=== PATIENT | male | born 1985 | race Caucasian/White ===

== ENCOUNTER 2016-03-18 00:16 | Inpatient (IN) ==
[2016-03-18] MEDS ORDERED: 0.9 % Sodium Chloride 1,000 ML IVC ONE ×2 (02:31→03:55)
[2016-03-18 03:32] LABS: Basophils # 0.1 K/mcL (0.0-0.2); Basophils % 0.3 %; Eosinophils # 0.1 K/mcL (0.0-0.6); Eosinophils % 0.3 %; Hematocrit 35.8 % (37.5-50.1); Hemoglobin 12.6 g/dL (12.9-16.9); Immature Granulocytes % 1.1 % (0-4); Lymphocytes # 1.7 K/mcL (0.6-4.6); Lymphocytes % 7.7 %; Mean Corpuscular HGB Conc 35.2 g/dL (31.6-35.5); Mean Corpuscular Hemoglobin 28.7 pg (28.0-33.3); Mean Corpuscular Volume 81.5 fL (83.0-100.0); Mean Platelet Volume 9.4 fL (9.4-12.4); Monocytes # 1.9 K/mcL (0.0-1.3); Monocytes % 8.4 %; Neutrophils # 18.1 K/mcL (1.6-8.9); Platelet Count 408 K/mcL (140-400); Red Blood Count 4.39 M/mcL (4.19-5.50); Red Cell Distribution Width 12.8 % (11.5-14.5); Segmented Neutrophils % 82.2 %
[2016-03-18 03:42] LABS: BUN/Creatinine Ratio 18 (6-26); Blood Urea Nitrogen 16 mg/dL (8-26); Calcium 8.8 mg/dL (8.6-10.8); Carbon Dioxide 21 mEq/L (19-29); Chloride 97 mEq/L (98-109); Glucose 89 mg/dL (70-99); Osmolality,Calculated 275 (280-300); Potassium 3.1 mEq/L (3.5-4.5); Sodium 132 mEq/L (136-145); eGFR For African Americans > 60 (> 60); eGFR For Non-African Americans > 60 (> 60)
[2016-03-18] MEDS ORDERED: Ketorolac 30 MG/ML VIAL IVP ONE (04:00)
--- NOTE | 2016-03-18 04:02 | Emergency Department Note ---
Disposition Clinical Impression: Hypoxia Pneumonia Qualifiers: Pneumonia type: due to unspecified organism Laterality: bilateral Lung location : lower lobe of lung Qualified Code(s): J18.9 - Pneumonia, unspecified organism Disposition: Admitted As Inpatient Condition: Fair General Adult HPI - General Chief complaint: ED Shortness of Breath/Dyspnea Stated complaint: NAOMI Time Seen by Provider: 03/18/16 02:30 Source: patient Limitations: no limitations Nursing Notes Reviewed: Yes Vital Signs Reviewed: Yes - History of Present Illness HPI Narrative: 30-year-old male who reports that he has had approximately one week of progressively worsening cough and changing color of sputum. He reports it is now green. He reports he is not having pain in his chest when he coughs. He denies any medical problems. He denies taking any medications. He does admit to shortness of breath. Radiation: non-radiation Pain Severity: moderate Pain Scale: 6 Consistency: constant Improves with: nothing Worsens with: nothing Associated symptoms: Reports: fever/chills Treatments Prior to Arrival: none - Related Data Allergies Allergy/AdvReac Type Severity Reaction Status Date / Time No Known Allergies Allergy Verified 03/18/16 00:18 All systems ED: reviewed and negative except as stated. Constitutional: Reports: fever ENT ED: Denies: throat pain Cardiovascular: Reports: chest pain Respiratory: Reports: cough, dyspnea Gastrointestinal: Denies: abdominal pain, nausea, vomiting Genitourinary: Denies: dysuria Musculoskeletal: Denies: back pain Integumentary: Denies: rash Neurological: Denies: headache Past Medical History - Past Medical History Source: patient Medical history: Reports: no medical history Psychiatric history: Reports: no psych history - Social History Smoking Status: Current every day smoker Smokeless Tobacco Status: No Alcohol use: Reports: none Drug use: Reports: none Physical Exam - General Limitations: no limitations General appearance: alert, anxious - Head Head exam: atraumatic - Eye Eye exam: Present: normal appearance, PERRL, EOMI - ENT ENT exam: normal exam, normal oropharynx - Chest Chest inspection: Present: normal inspection - Respiratory Respiratory exam: Present: other (Course lung sounds bilaterally. No wheezes) - Cardiovascular Cardiovascular exam: Present: normal rhythm, tachycardia - Abdominal Exam Abdominal exam: Present: soft, Non-Tender - Extremities Exam Extremities exam: Present: normal inspection - Neurological Exam Neurological exam: Present: alert, oriented X3, CN II-XII intact - Skin Skin exam: Present: warm, dry Course Course Narrative: 30-year-old male with cough and sputum change and fever over the last week. Chest x-ray demonstrates bilateral pneumonia. He has leukocytosis on his CBC. EKG shows sinus tachycardia. He is mildly hypoxic with an SPO2 of 90% on room air. He will receive IV fluids due to a sinus tachycardia. We will also start antibiotics. His lactate is normal. He will be admitted to the hospital due to bilateral pneumonia with hypoxia and the fact that he lives alone. - Reevaluation(s) Reevaluation #1: He is febrile to temperature of 103.1. We will give him Tylenol. Levofloxacin has been ordered. He is also on his second liter of normal saline. His blood pressure is stable at 148/83. Heart rate has come down to 115 with IV fluids. We will admit to the hospitalist Reevaluation #2: Accepted by Dr Booker for admission. Will do CTA on way up to floor and the hospitalist agreed to follow up on the result there. Vital Signs Temperature 98.1 F 03/18/16 00:18 Pulse Rate 108 03/18/16 00:18 Respiratory Rate 20 03/18/16 00:18 Blood Pressure 110/73 03/18/16 00:18 O2 Sat by Pulse Oximetry 92 L 03/18/16 00:18 Temperature 103.1 F H 03/18/16 04:51 Pulse Rate 123 03/18/16 04:51 Respiratory Rate 24 03/18/16 04:51 Blood Pressure 148/83 03/18/16 04:51 O2 Sat by Pulse Oximetry 91 L 03/18/16 04:51 Oxygen Delivery Oxygen Delivery Nasal Cannula Medical Decision Making - Lab Data Lab results reviewed: Yes I reviewed the patient's lab results. Result diagrams: 03/18/16 03:15 03/18/16 03:15 Lab Results 03/18/16 03/18/16 03/18/16 Range/Units 03:15 03:15 03:15 WBC 22.0 H (4.3-11.1) K/mcL RBC 4.39 (4.19-5.50) M/mcL Hgb 12.6 L (12.9-16.9) g/dL Hct 35.8 L (37.5-50.1) % MCV 81.5 L (83.0-100.0) fL MCH 28.7 (28.0-33.3) pg MCHC 35.2 (31.6-35.5) g/dL RDW 12.8 (11.5-14.5) % Plt Count 408 H (140-400) K/mcL MPV 9.4 (9.4-12.4) fL Immature Gran % 1.1 (0-4) % Seg Neutrophils % 82.2 % Lymphocytes % 7.7 % Monocytes % 8.4 % Eosinophils % 0.3 % Basophils % 0.3 % Neutrophils # 18.1 H (1.6-8.9) K/mcL Lymphocytes # 1.7 (0.6-4.6) K/mcL Monocytes # 1.9 H (0.0-1.3) K/mcL Eosinophils # 0.1 (0.0-0.6) K/mcL Basophils # 0.1 (0.0-0.2) K/mcL Sodium 132 L (136-145) mEq/L Potassium 3.1 L (3.5-4.5) mEq/L Chloride 97 L (98-109) mEq/L Carbon Dioxide 21 (19-29) mEq/L BUN 16 (8-26) mg/dL Creatinine 0.89 (0.72-1.25) mg/dL Est GFR ( Amer) > 60 (> 60) Est GFR (Non-Af Amer) > 60 (> 60) BUN/Creatinine Ratio 18 (6-26) Glucose 89 (70-99) mg/dL Calculated Osmolality 275 L (280-300) Lactic Acid 1.3 (0.5-2.2) mmol/L Calcium 8.8 (8.6-10.8) mg/dL Troponin I (0-0.03) ng/mL 03/18/16 Range/Units 03:15 WBC (4.3-11.1) K/mcL RBC (4.19-5.50) M/mcL Hgb (12.9-16.9) g/dL Hct (37.5-50.1) % MCV (83.0-100.0) fL MCH (28.0-33.3) pg MCHC (31.6-35.5) g/dL RDW (11.5-14.5) % Plt Count (140-400) K/mcL MPV (9.4-12.4) fL Immature Gran % (0-4) % Seg Neutrophils % % Lymphocytes % % Monocytes % % Eosinophils % % Basophils % % Neutrophils # (1.6-8.9) K/mcL Lymphocytes # (0.6-4.6) K/mcL Monocytes # (0.0-1.3) K/mcL Eosinophils # (0.0-0.6) K/mcL Basophils # (0.0-0.2) K/mcL Sodium (136-145) mEq/L Potassium (3.5-4.5) mEq/L Chloride (98-109) mEq/L Carbon Dioxide (19-29) mEq/L BUN (8-26) mg/dL Creatinine (0.72-1.25) mg/dL Est GFR ( Amer) (> 60) Est GFR (Non-Af Amer) (> 60) BUN/Creatinine Ratio (6-26) Glucose (70-99) mg/dL Calculated Osmolality (280-300) Lactic Acid (0.5-2.2) mmol/L Calcium (8.6-10.8) mg/dL Troponin I 0.01 (0-0.03) ng/mL - Radiology Data Radiology results reviewed: Yes I reviewed the patient's radiology results. - EKG Data EKG #1 EKG attestation: Yes I reviewed and interpreted this EKG. EKG shows normal: sinus rhythm Rate: tachycardia Rhythm: NSR [place]/QRS: normal Interpretation: other (sinus tachycardia) Attestation Statement - Attestation Attestation: I, Pk Gasca MD, personally performed a history and physical exam of the patient and discussed their management with the resident. I reviewed the resident's note and agree with the documented findings, medical decision making , and plan of care. 30-year-old male presents to the emergency department with a complaint of increasing cough with sputum production which started about one week prior to arrival. He also complains of increasing shortness of breath. No significant chest pain. He has had some chills and subjective fever. No history of any longer breathing problems or heart problems. Examination Patient Is a Well-Developed Thin Male in No Acute Distress. He Does Appear to Be in Moderate Discomfort. Patient Is Alert and Oriented 3. There Is No Cyanosis or Diaphoresis. Breath Sounds Are Equal Bilaterally with Some Bilateral Posterior Rales. No Wheezes Noted. Heart Tachycardic and Regular. Abdomen Is Soft and Nontender with Normal Bowel Sounds. Labs reviewed. Patient has a leukocytosis and chest x-ray shows bilateral pneumonia. The hospitalist, Dr. Booker, was consulted and accepted admission of the patient.
[2016-03-18] MEDS ORDERED: Levofloxacin 750 MG/150 ML 750 MG/150 ML BAG IVPB ONE (05:00)
[2016-03-18] MEDS ORDERED: Mag Hydrox/Al Hydrox/Simeth 30 ML UDC PO PRN (05:23)
[2016-03-18] MEDS ORDERED: *HR* OxyCODONE Immed Rel 5 MG TABLET PO PRN ×3 (05:23→13:23)
[2016-03-18] MEDS ORDERED: Naloxone 0.4 MG/ML INJ IVP PRN (05:23)
[2016-03-18] MEDS ORDERED: Acetaminophen 325 MG TABLET PO PRN (05:23)
[2016-03-18] MEDS ORDERED: *HR* Morphine 2 MG/ML SYRINGE IVP PRN (05:23)
[2016-03-18] MEDS ORDERED: Albuterol 2.5 MG/3 ML NEBULIZER IH PRN (05:34)
[2016-03-18] MEDS ORDERED: methylPREDNISolone 125 MG/2 ML VIAL IVP ONE (05:41)
[2016-03-18] MEDS ORDERED: Vancomycin (wt based) 1,000 MG VIAL IVPB SCH (06:00)
[2016-03-18 06:11] LABS: Alanine Aminotransferase 28 Units/L (0-55); Albumin 2.9 g/dL (3.5-5.0); Albumin/Globulin Ratio 0.7 (1.1-2.2); Alkaline Phosphatase 130 Units/L (38-126); Aspartate Amino Transferase 48 Units/L (5-34); Bilirubin,Direct 0.4 mg/dL (0.0-0.5); Bilirubin,Indirect 0.2 mg/dL (0.0-1.2); Bilirubin,Total 0.6 mg/dL (0.2-1.2); C-Reactive Protein 236 mg/L (Less than 5); Globulin 4.4 g/dL (2.4-3.5); Magnesium 1.8 mg/dL (1.6-2.6); Phosphorous 2.8 mg/dL (2.3-4.7); Total Protein 7.3 g/dL (6.0-8.3)
[2016-03-18 06:22] LABS: INR 1.8; Prothrombin Time 19.5 Seconds (9.4-12.1)
[2016-03-18 06:24] LABS: Activated Partial Thrombo Time 35.6 Seconds (26.0-36.0)
--- NOTE | 2016-03-18 06:25 | Internal Med History&Physical ---
<Shanita Harman - Last Filed: 03/18/16 06:38> Date of Encounter: 03/18/16 Time of Encounter: 05:30 Assessment and Plan (1) Pneumonia Current visit: Yes Status: Acute CXR with diffuse bilateral patchy infiltrates Temp of 103.1 F with WBC 22.0 Lactate 1.3 CTA chest pending Levoquin and Vancmycin Blood cultures x 2 pending Sputum culture with Gram stain pending MRSA swab culture pending Respiratory viral swab pending Respiratory infection panel pending Qualifiers: Pneumonia type: due to unspecified organism Laterality: bilateral Lung location: unspecified part of lung Qualified Code(s): J18.9 - Pneumonia, unspecified organism (2) Hypoxia Current visit: Yes Status: Acute Sats 94% at 4 L O2 NC Duoneb qid Albuterol prn Solumedrol x 1 dose, may consider adding oral steroids as needed Internal Medicine - H&P: HPI Chief complaint: cough and dyspnea Admitted From: Home Plans for Post Hospital Care: Home History of present illness: Mr. Fox is a 30 year old male who presents with 1 week history of cough with 3-4 day history of dyspnea. Patient has tried nothing for the cough and nothing for dyspnea. He states that he has had associated fever (103.1 measured upon arrival), chills, sweats, headache, dizziness, and chest pain. Patient does admit to taking Ibuprofen and Baclofen to help with back pain. He denies abdominal pian, nausea, and vomiting. Past Med Surg Social Fam HX - Past Medical History Medical history: no medical history Psychiatric history: no psych history - Past Surgical History Surgical History: no surgical history - Social History Smoking Status: Current every day smoker Smokeless Tobacco Status: No Alcohol use: none Drug use: none - Family History Father History Unknown: Yes Internal Medicine - H&P: Meds Albuterol Sulfate [Albuterol Inhaler] 2 puff IH Q4HR PRN 03/18/16 [History] Ibuprofen [Motrin] 200 mg PO Q6HR PRN 03/18/16 [History] Allergies No Known Allergies Allergy (Verified 03/18/16 00:18) All Systems PM: A 10-system review of systems was performed and is negative for pertinent findings except as documented above in the HPI. - Constitutional Constitutional: chills, fever(s) - Cardiovascular Cardiovascular ROS IM: chest pain - Respiratory Respiratory: cough, dyspnea - Constitutional Vitals: Temp Pulse Resp BP Pulse Ox 103.1 F H 123 24 152/76 91 L 03/18/16 04:51 03/18/16 04:51 03/18/16 05:35 03/18/16 05:35 03/18/16 04:51 General appearance: Present: disheveled, A&O X 3 (However falls alseep during examination), underweight - Head Head exam: Present: atraumatic, normal inspection, normocephalic - Respiratory Respiratory exam: Present: rhonchi, wheezes - Cardiovascular Cardiovascular exam: Present: +S1, +S2, tachycardia (regular rhythm with precordial heave) Internal Med - H&P Results - Labs CBC & Chem 7: 03/18/16 03:15 03/18/16 03:15 - Attending Attestation I examined this patient and my medical decision-making was reviewed with the CARTON INSPECTOR/PA/Advanced Practice Nurse/Resident Physician. I agree with the documented findings, disposition and treatment plan as described except to the extent set forth below. - VTE Documentation of Mechanical Device: Intermittent pneumatic compression device <BookerWilliam Liu - Last Filed: 03/20/16 20:04> Date of Encounter: 03/18/16 Assessment and Plan (1) Sepsis Current visit: Yes Status: Acute . Qualifiers: Sepsis type: sepsis due to unspecified organism Qualified Code(s): A41.9 - Sepsis, unspecified organism (2) IVDU (intravenous drug user) Current visit: Yes Status: Chronic . (3) Acute respiratory failure with hypoxia Current visit: Yes Status: Acute . (4) Acute chest wall pain Current visit: Yes Status: Acute . (5) Chest pain, rule out acute myocardial infarction Current visit: Yes Status: Acute . (6) Chest pain with low risk of acute coronary syndrome Current visit: Yes Status: Acute . (7) Multifocal pneumonia Current visit: Yes Status: Acute . (8) Toxic metabolic encephalopathy Current visit: Yes Status: Acute . (9) Hypoalbuminemia due to protein-calorie malnutrition Current visit: Yes Status: Acute . (10) Anemia Current visit: Yes Status: Acute . Qualifiers: Anemia type: unspecified type Qualified Code(s): D64.9 - Anemia, unspecified (11) Coagulopathy Current visit: Yes Status: Acute . (12) Hyponatremia with decreased serum osmolality Current visit: Yes Status: Acute . (13) Hypokalemia due to loss of potassium Current visit: Yes Status: Acute . (14) Transaminitis Current visit: Yes Status: Acute . (15) Acute bronchiolitis Current visit: Yes Status: Acute . Qualifiers: Bronchiolitis organism: unspecified organism Qualified Code(s): J21.9 - Acute bronchiolitis, unspecified Internal Medicine - H&P: HPI History of present illness: Mr. Fox is a 30 year old male Patient was visited and interviewed and examined. I examined this patient and my medical decision-making was reviewed with the Resident Physician. I agree with the documented findings, disposition and treatment plan as described except to the extent set forth below. Cumulative laboratory and radiographic database was reviewed considered and discussed. Pertinent ancillary medical records including ECW and PCI documentation, when available, was reviewed and considered. Given the patient's presenting concerns, past medical history, clinical findings and symptoms, he is admitted at this time to undergo further evaluation and disposition. Orders were written as per the computerized physician ordered persistent........................ Past Med Surg Social Fam HX - Past Medical History Source: old records reviewed Medical history: other (History of intravenous and on intravenous drug abuse) Psychiatric history: other - Past Surgical History Surgical History: non-contributory - Social History Packs per day: 1+ Drug use: cocaine, opiates, marijuana, IVDU, prescription drug abuse, other Occupational status: unemployed Current living situation: With Family Activity Level: Independent ambulation, Mostly sedentary Recent Out of Country Travel Within the Last 8 Weeks: No Exposure or Possible Exposure to Illness During Travel: No All Systems PM: A 10-system review of systems was performed and is negative for pertinent findings except as documented above in the HPI. - Constitutional Constitutional: as per HPI, chills, fatigue, fever(s), malaise, weakness, other , no night sweats - EENT Eyes: as per HPI, no change in vision, no discharge, no pain, no photophobia Ears: as per HPI, no ear discharge, no ear pain, no tinnitus Nose, mouth and throat: as per HPI, nasal congestion, sinus pressure, no dysphagia, no nasal discharge, no neck pain, no sore throat - Cardiovascular Cardiovascular ROS IM: as per HPI, chest pain, dyspnea, dyspnea on exertion, lightheadedness, palpitations, no claudication, no diaphoresis, no syncope - Respiratory Respiratory: as per HPI, cough, dyspnea, dyspnea on exertion, pain on inspiration, chest congestion, change in phlegm color, pain with cough, no hemoptysis, no wheezing, no stridor, no excessive phlegm production - Gastrointestinal Gastrointestinal: as per HPI, cramping, nausea, no abdominal pain, no diarrhea, no hematemesis, no hematochezia, no melena, no vomiting - Genitourinary Genitourinary ROS male: as per HPI, no difficulty urinating, no dysuria, no hematuria - Musculoskeletal Musculoskeletal ROS IM: as per HPI, myalgias, no numbness, no tingling - Integumentary Integumentary IM: as per HPI, no rash, no unusual bruising - Neurological Neurological ROS: as per HPI, other, no confusion, no convulsions, no focal weakness, no numbness, no tingling, no tremor(s) - Psychiatric Psychiatric: as per HPI - Endocrine Endocrine IM: as per HPI - Hematologic/Lymphatic Hematologic/Lymphatic: as per HPI, no easy bruising - Allergic/Immunologic Allergic/Immunologic: as per HPI - Constitutional Vitals: Temp Pulse Resp BP Pulse Ox 103.1 F H 123 24 152/76 91 L 03/18/16 04:51 03/18/16 04:51 03/18/16 05:35 03/18/16 05:35 03/18/16 04:51 General appearance: Present: cachectic, disheveled, A&O X 2, underweight, answers questions appropriately - Head Head exam: Present: atraumatic, normocephalic - Eye Eye exam: Present: EOMI, PERRL, conjuntiva pink, sclera anicteric Pupils: Present: normal accommodation, PERRL - ENT ENT exam: Present: mucous membranes dry, normal oropharynx - Neck Neck exam general surgery: Present: full ROM, lymphadenopathy, supple, trachea midline. Absent: tenderness, nuchal rigidity - Respiratory Respiratory exam: Present: accessory muscle use, chest wall tenderness, decreased breath sounds, respiratory distress, rhonchi, wheezes, tachypnea. Absent: prolonged expiratory phase, rales, stridor - Cardiovascular Cardiovascular exam: Present: distant heart sounds, RRR, +S1, +S2, tachycardia. Absent: diastolic murmur, gallop, rubs, systolic murmur - GI/Abdominal GI/Abdominal exam: Present: diminished bowel sounds, soft, no peritoneal signs. Absent: distended, tenderness - Extremities Exam Extremities exam: Present: warm, radial pulses palpable and symetrical. Absent : calf tenderness, cyanotic, pedal edema - Neurological Exam Neurological exam: Present: alert, altered, CN II-XII intact, no focal deficits. Absent: oriented X3, pronater drift, facial droop, speech deficit - Expanded Neurological Exam Neurological exam expanded: Present: inattentive, protecting the airway. Absent : ataxia, expressive aphasia, receptive aphasia Patient oriented to: Present: person, place. Absent: time Speech: Present: garbled Coma Scale Eye Opening: To Voice Coma Scale Motor Response: Obeys Commands Coma Scale Verbal Response: Inappropriate Coma Scale Total: 12 - Psychiatric Psychiatric exam: Present: flat affect - Skin Skin exam: Present: dry, intact, warm. Absent: petechiae, rash, urticaria, vesicles Internal Med - H&P Results - Labs CBC & Chem 7: 03/20/16 05:36 03/20/16 05:36 Labs: Cardiac Enzymes 03/18/16 Range/Units 06:02 Troponin I 0.00 (0-0.03) ng/mL - Impressions Vital Signs Temp Pulse Resp BP Pulse Ox 03/18/16 05:35 24 152/76 03/18/16 04:51 103.1 F H 123 24 148/83 91 L 03/18/16 04:20 130 28 168/106 91 L 03/18/16 04:15 90 L 03/18/16 02:52 128 153/87 03/18/16 01:31 106 22 93 L 03/18/16 00:18 98.1 F 108 20 110/73 92 L Intake and Output 03/17/16 03/17/16 03/18/16 15:59 23:59 07:59 Other: Weight 125 kg Patient Weight 03/18/16 23:59 Weight 125 kg Short CBC 03/18/16 Range/Units 03:15 WBC 22.0 H (4.3-11.1) K/mcL Hgb 12.6 L (12.9-16.9) g/dL Hct 35.8 L (37.5-50.1) % Plt Count 408 H (140-400) K/mcL Neutrophils # 18.1 H (1.6-8.9) K/mcL BMP 03/18/16 Range/Units 03:15 Sodium 132 L (136-145) mEq/L Potassium 3.1 L (3.5-4.5) mEq/L Chloride 97 L (98-109) mEq/L Carbon Dioxide 21 (19-29) mEq/L BUN 16 (8-26) mg/dL Creatinine 0.89 (0.72-1.25) mg/dL Glucose 89 (70-99) mg/dL Calcium 8.8 (8.6-10.8) mg/dL Cardiac Enzymes 03/18/16 03/18/16 Range/Units 06:02 03:15 Troponin I 0.00 0.01 (0-0.03) ng/mL Liver Function 03/18/16 Range/Units 03:15 Total Bilirubin 0.6 (0.2-1.2) mg/dL Direct Bilirubin 0.4 (0.0-0.5) mg/dL AST 48 H (5-34) Units/L ALT 28 (0-55) Units/L Alkaline Phosphatase 130 H (38-126) Units/L Albumin 2.9 L (3.5-5.0) g/dL Abnormal lab results WBC 22.0 K/mcL (4.3-11.1) H 03/18/16 03:15 Hgb 12.6 g/dL (12.9-16.9) L 03/18/16 03:15 Hct 35.8 % (37.5-50.1) L 03/18/16 03:15 MCV 81.5 fL (83.0-100.0) L 03/18/16 03:15 Plt Count 408 K/mcL (140-400) H 03/18/16 03:15 Neutrophils # 18.1 K/mcL (1.6-8.9) H 03/18/16 03:15 Monocytes # 1.9 K/mcL (0.0-1.3) H 03/18/16 03:15 ESR 98 mm/hr (0-10) H 03/18/16 03:15 PT 19.5 Seconds (9.4-12.1) H 03/18/16 06:02 D-Dimer 2573 ng/mLFEU (0-500) H 03/18/16 06:02 Sodium 132 mEq/L (136-145) L 03/18/16 03:15 Potassium 3.1 mEq/L (3.5-4.5) L 03/18/16 03:15 Chloride 97 mEq/L (98-109) L 03/18/16 03:15 Calculated Osmolality 275 (280-300) L 03/18/16 03:15 AST 48 Units/L (5-34) H 03/18/16 03:15 Alkaline Phosphatase 130 Units/L (38-126) H 03/18/16 03:15 C-Reactive Protein 236 mg/L (Less than 5) H 03/18/16 03:15 Albumin 2.9 g/dL (3.5-5.0) L 03/18/16 03:15 Globulin 4.4 g/dL (2.4-3.5) H 03/18/16 03:15 Albumin/Globulin Ratio 0.7 (1.1-2.2) L 03/18/16 03:15 Allergies Allergy/AdvReac Type Severity Reaction Status Date / Time No Known Allergies Allergy Verified 03/18/16 00:18 Laboratory Results WBC 22.0 K/mcL (4.3-11.1) H 03/18/16 03:15 RBC 4.39 M/mcL (4.19-5.50) 03/18/16 03:15 Hgb 12.6 g/dL (12.9-16.9) L 03/18/16 03:15 Hct 35.8 % (37.5-50.1) L 03/18/16 03:15 MCV 81.5 fL (83.0-100.0) L 03/18/16 03:15 MCH 28.7 pg (28.0-33.3) 03/18/16 03:15 MCHC 35.2 g/dL (31.6-35.5) 03/18/16 03:15 RDW 12.8 % (11.5-14.5) 03/18/16 03:15 Plt Count 408 K/mcL (140-400) H 03/18/16 03:15 MPV 9.4 fL (9.4-12.4) 03/18/16 03:15 Immature Gran % 1.1 % (0-4) 03/18/16 03:15 Seg Neutrophils % 82.2 % 03/18/16 03:15 Lymphocytes % 7.7 % 03/18/16 03:15 Monocytes % 8.4 % 03/18/16 03:15 Eosinophils % 0.3 % 03/18/16 03:15 Basophils % 0.3 % 03/18/16 03:15 Neutrophils # 18.1 K/mcL (1.6-8.9) H 03/18/16 03:15 Lymphocytes # 1.7 K/mcL (0.6-4.6) 03/18/16 03:15 Monocytes # 1.9 K/mcL (0.0-1.3) H 03/18/16 03:15 Eosinophils # 0.1 K/mcL (0.0-0.6) 03/18/16 03:15 Basophils # 0.1 K/mcL (0.0-0.2) 03/18/16 03:15 ESR 98 mm/hr (0-10) H 03/18/16 03:15 PT 19.5 Seconds (9.4-12.1) H 03/18/16 06:02 INR 1.8 03/18/16 06:02 APTT 35.6 Seconds (26.0-36.0) 03/18/16 06:02 D-Dimer 2573 ng/mLFEU (0-500) H 03/18/16 06:02 Sodium 132 mEq/L (136-145) L 03/18/16 03:15 Potassium 3.1 mEq/L (3.5-4.5) L 03/18/16 03:15 Chloride 97 mEq/L (98-109) L 03/18/16 03:15 Carbon Dioxide 21 mEq/L (19-29) 03/18/16 03:15 BUN 16 mg/dL (8-26) 03/18/16 03:15 Creatinine 0.89 mg/dL (0.72-1.25) 03/18/16 03:15 Est GFR ( Amer) > 60 (> 60) 03/18/16 03:15 Est GFR (Non-Af Amer) > 60 (> 60) 03/18/16 03:15 BUN/Creatinine Ratio 18 (6-26) 03/18/16 03:15 Glucose 89 mg/dL (70-99) 03/18/16 03:15 Calculated Osmolality 275 (280-300) L 03/18/16 03:15 Lactic Acid 1.3 mmol/L (0.5-2.2) 03/18/16 03:15 Calcium 8.8 mg/dL (8.6-10.8) 03/18/16 03:15 Phosphorus 2.8 mg/dL (2.3-4.7) 03/18/16 03:15 Magnesium 1.8 mg/dL (1.6-2.6) 03/18/16 03:15 Total Bilirubin 0.6 mg/dL (0.2-1.2) 03/18/16 03:15 Direct Bilirubin 0.4 mg/dL (0.0-0.5) 03/18/16 03:15 Indirect Bilirubin 0.2 mg/dL (0.0-1.2) 03/18/16 03:15 AST 48 Units/L (5-34) H 03/18/16 03:15 ALT 28 Units/L (0-55) 03/18/16 03:15 Alkaline Phosphatase 130 Units/L (38-126) H 03/18/16 03:15 Troponin I 0.00 ng/mL (0-0.03) 03/18/16 06:02 C-Reactive Protein 236 mg/L (Less than 5) H 03/18/16 03:15 Serum Total Protein 7.3 g/dL (6.0-8.3) 03/18/16 03:15 Albumin 2.9 g/dL (3.5-5.0) L 03/18/16 03:15 Globulin 4.4 g/dL (2.4-3.5) H 03/18/16 03:15 Albumin/Globulin Ratio 0.7 (1.1-2.2) L 03/18/16 03:15 Impressions Chest X-Ray 03/18/16 02:31 IMPRESSION: 1. Bilateral patchy airspace disease due to pneumonia. Recommend chest radiograph in 8 weeks to confirm resolution. D/ / Miguel Sotelo MD / Miguel Sotelo MD Interpreting Provider: Miguel Sotelo MD Chest CTA 03/18/16 05:08 IMPRESSION: 1. Diffuse bilateral bronchiolitis and developing pneumonia. 2. Mediastinal and bilateral hilar adenopathy, likely reactive. D/ / Miguel Sotelo MD / Miguel Sotelo MD Interpreting Provider: Miguel Sotelo MD - Attending Attestation My signature below is to certify that this patient is under my care and that I, or the Resident Physician working with me, has had a [id number] encounter with this patient. Plan of care has been reviewed and discussed in detail with the patient. Questions addressed. Advance care directive discussion briefly addressed. Patient does not declare any restrictions at this time. Outpatient medication schedules will be reviewed, confirmed to facilitate as appropriate. Patient does not declare any chronic ongoing medical treatments at this time. Smoking cessation counseling briefly addressed. Patient accepts nicotine substitution this admission. The patient acknowledges history of intravenous and non-intravenous drug abuse. He claims current abstinence but UDS shows positive findings of recent usage. Clinical examination also suggests sedation/intoxication the time of admission. The patient's presentation is worrisome for the potential of underlying bacterial endocarditis with associated multifocal pneumonia and sepsis. Rule out pulmonary thromboemboli. Rule out septic emboli. Clinical evaluations will proceed comprehensively. Precautions initiated. Hospital course will be dependent on collective clinical findings, treatment response and potential consultative interventions. The patient is at risk for acute clinical decline and morbidity given his presenting chief complaints, findings and comorbidities. Condition is serious. Prognosis is guarded. CODE STATUS is full. .
[2016-03-18] MEDS ORDERED: Vancomycin 2,000 MG in D5% in Water 500 ML IVPB SCH (07:00)
[2016-03-18] MEDS ORDERED: Potassium Chloride Elixir 20 MEQ/15 ML UDC PO ONE (07:20)
[2016-03-18] MEDS ORDERED: Potassium Chloride 20 MEQ, Lidocaine 1% 2 ML in D5% in Water 250 ML IVPB ONE ×2 (07:20→16:00)
[2016-03-18] MEDS: Folic Acid 1 MG TABLET PO SCH (07:55)
[2016-03-18] MEDS: Thiamine (B-1) 100 MG TABLET PO SCH (07:55)
[2016-03-18] MEDS: Vitamin B Complex/Vit C/Vit E 1 EACH TABLET PO SCH (07:55)
[2016-03-18] MEDS: Levofloxacin 750 MG/150 ML 750 MG/150 ML BAG IVPB SCH (07:56)
[2016-03-18] MEDS: 0.9 % Sodium Chloride 1,000 ML IVC SCH ×2 (07:56→20:53)
[2016-03-18] MEDS: Nicotine 21 MG PATCH.TD24 TD SCH (08:03)
[2016-03-18 08:48] LABS: Lipase 9 Units/L (8-78)
[2016-03-18 08:52] LABS: Ethanol < 10 mg/dL (0-10)
[2016-03-18] MEDS: Ipratropium/Albuterol Neb 3 ML IH SCH ×3 (10:50→22:35)
[2016-03-18 11:03] LABS: Bilirubin,Urine Negative (Negative); Blood,Urine Negative (Negative); Clarity,Urine Clear (Clear); Color,Urine Yellow (Yellow); Glucose,Urine (UA) Normal (Normal); Ketones,Urine Trace mg/dL (Negative); Leukocyte Esterase,Urine Negative (Negative); Nitrite,Urine Negative (Negative); PH,Urine 6.5 pH Units (5.0-8.0); Protein,Urine Negative (Neg-Trace); Specific Gravity,Urine 1.026 (1.010-1.025); Urobilinogen,Urine Normal (Normal)
[2016-03-18 11:08] LABS: Amphetamine Screen,Urine Negative ng/mL (Cutoff=1000); Barbiturate Screen,Urine Negative ng/mL (Cutoff=200); Benzodiazepines Screen,Urine Negative ng/mL (Cutoff=200); Cannabinoid Screen,Urine Negative ng/mL (Cutoff = 50); Cocaine Screen,Urine Positive ng/mL (Cutoff= 300); Opiate Screen,Urine Positive ng/mL (Cutoff=300); Phencyclidine Screen,Urine Negative ng/mL (Cutoff=25)
--- NOTE | 2016-03-18 11:46 | ECHO - Doppler Report ---
Echocardiogram Name: Prudencio Fox Date of Study: 03/18/2016 Date: 1985 Ht: 72.0 in Medical Record#: [id number] Age: 30 Wt: 128.0 lb Gender: Male BSA: 1.76 Order #: [id number] Location: [facility] Room #: 2A38 Reading Physician: Marline Richey DO Oyster Preparer: Andrew Ramos RDCS Ordering Physician: William Booker MD Primary Physician: None Indications: Sepsis, Chest pain, Shortness of breath Impressions: LVEF 65%. Normal diastolic function of the left ventricle. Normal right ventricular size and function. No significant valvular dysfunction. No pulmonary hypertension. Left Ventricular Wall Motion: Rest Echo Findings All wall segments showed normal motion. Findings: Study Quality * Technically adequate exam. ECG Findings * Normal sinus rhythm. Left Ventricle * Dyskinetic septal motion. * Normal left ventricular diastolic function. * Normal LV size and wall thickness. * LVEF 65%. Aortic Valve * No aortic regurgitation. * Trileaflet aortic valve. * Normal aortic valve structure. * No aortic stenosis. Mitral Valve * No mitral regurgitation. * Normal mitral valve structure. * No mitral stenosis. Tricuspid Valve * Normal tricuspid valve structure. * Trace tricuspid regurgitation. * Estimated RA pressure is 3 mmHg. * Estimated RVSP is 22 mmHg. * No pulmonary hypertension. Pulmonic Valve * Pulmonic valve is not well visualized. * No pulmonic stenosis. * Trace pulmonic regurgitation. Pulmonary Artery * Pulmonary artery not well visualized. Right Ventricle * Normal right ventricular structure and function. Left Atrium * Normal left atrial size. Right Atrium * Normal right atrial size. IVC * Normal IVC dimensions and inspiratory collapse. Interatrial Septum * No evidence of PFO by color Doppler. Pericardium * There is no pericardial effusion present. Aorta * Normally sized aortic root. History History of Smoking Years 7 Packs 1 Measurements: BP: 111/ 57 2D Normal Values IVSd: .80 cm 0.6 - 1.0 cm LVIDd: 4.75 cm 3.7 - 5.6 cm LVPWd: .80 cm 0.6 - 1.1 cm LVIDs: 3.21 cm 1.5 - 3.6 cm AO: 2.50 cm < 4.0 cm LA: 3.20 cm 2.0 - 4.0cm %FS: 32.40 cm >25 % LA volume: 34 Mitral Valve Peak E:1.09 m/sec Peak A:.78 m/sec E/A Ratio:1.4 Peak E' Lat Silvino:18 cm/s Peak E' Med Silvino:13.4 cm/s E/E' Lat Ratio:6.1 E/E' Med Ratio:8.1 Tricuspid Valve TV Regurg Peak Grad: 19.00mmHg TV Regurg Peak Silvino: 2.16m/sec Updated by Marline Richey on 03/18/2016 11:40:01 AM electronically signed on 03/18/2016 11:40:58 AM with status of Final Wall Motion Ocasio: 1=Normal, 2=Hypokinesis, 3=Akinesis, 4=Dyskinesis, 5=Aneurysmal, 6=Hyperkinetic, X=Not Visualized (Blank)=Missing
[2016-03-18 11:55] LABS: HIV-1&2 Antibody & p24 Ag Nonreactive (Nonreactive); Hepatitis A Antibody IgM Nonreactive (Nonreactive); Hepatitis B Core IgM Nonreactive (Nonreactive); Hepatitis B Surface Antigen Nonreactive (Nonreactive)
[2016-03-18 12:05] LABS: Hepatitis C Virus Antibody Reactive (Nonreactive)
[2016-03-18] MEDS ORDERED: Ipratropium/Albuterol Neb 3 ML IH PRN (13:22)
--- NOTE | 2016-03-18 16:16 | Electrocardiograph Report ---
[facility] Test Date: 2016-03-18 Pat Name: Prudencio Fox Department: 103 Room: 2A38 Gender: M Fitness Instructor: MARSHA : 1985 Requested By: Prudencio Abdullahi Order Number: [id number] Reading MD: Marline Richey Measurements Intervals [place] Rate: 100 P: -76 [place]: 138 QRS: 17 QRSD: 90 T: 18 QT: 355 QTc: 412 Interpretive Statements SINUS TACHYCARDIA POSSIBLE RIGHT VENTRICULAR CONDUCTION DELAY POSSIBLE INFERIOR MYOCARDIAL INFARCTION, OF INDETERMINATE AGE Electronically Signed On 03-18-16 16:15:39 EST by Marline Richey
[2016-03-18] MEDS: Benzonatate 100 MG CAPSULE PO PRN (18:15)
[2016-03-18] MEDS: *HR* LORazepam 2 MG/ML VIAL IVP PRN ×2 (18:16→23:57)
[2016-03-18] MEDS: *HR* Heparin 5,000 UNIT/ML VIAL SQ SCH (18:16)
[2016-03-18] MEDS: Vancomycin 1,000 MG in D5% in Water 250 ML IVPB SCH (18:27)
[2016-03-19] MEDS: Benzonatate 100 MG CAPSULE PO PRN ×2 (00:08→23:53)
[2016-03-19] MEDS: Ipratropium/Albuterol Neb 3 ML IH SCH ×4 (03:21→22:39)
[2016-03-19] MEDS: *HR* LORazepam 2 MG/ML VIAL IVP PRN ×6 (04:10→23:53)
[2016-03-19 05:55] LABS: Hematocrit 35.5 % (37.5-50.1); Hemoglobin 11.8 g/dL (12.9-16.9); Mean Corpuscular HGB Conc 33.2 g/dL (31.6-35.5); Mean Corpuscular Hemoglobin 28.8 pg (28.0-33.3); Mean Corpuscular Volume 86.6 fL (83.0-100.0); Mean Platelet Volume 11.4 fL (9.4-12.4); Platelet Count 214 K/mcL (140-400); Red Cell Distribution Width 13.7 % (11.5-14.5)
[2016-03-19 06:07] LABS: BUN/Creatinine Ratio 17 (6-26); Blood Urea Nitrogen 11 mg/dL (8-26); Calcium 8.2 mg/dL (8.6-10.8); Carbon Dioxide 18 mEq/L (19-29); Glucose 217 mg/dL (70-99); Osmolality,Calculated 298 (280-300); eGFR For African Americans > 60 (> 60); eGFR For Non-African Americans > 60 (> 60)
[2016-03-19 06:21] LABS: Chloride 114 mEq/L (98-109); Potassium 3.4 mEq/L (3.5-4.5); Sodium 141 mEq/L (136-145)
[2016-03-19] MEDS ORDERED: Vancomycin 1,500 MG in D5% in Water 250 ML IVPB SCH ×2 (07:00→23:45)
[2016-03-19] MEDS: 0.9 % Sodium Chloride 1,000 ML IVC SCH (07:47)
[2016-03-19] MEDS: Thiamine (B-1) 100 MG TABLET PO SCH (07:48)
[2016-03-19] MEDS: Nicotine 21 MG PATCH.TD24 TD SCH (07:48)
[2016-03-19] MEDS: Vitamin B Complex/Vit C/Vit E 1 EACH TABLET PO SCH (07:48)
[2016-03-19] MEDS: Folic Acid 1 MG TABLET PO SCH (07:48)
[2016-03-19] MEDS: Vancomycin 1,000 MG in D5% in Water 250 ML IVPB SCH (07:49)
[2016-03-19] MEDS: *HR* Heparin 5,000 UNIT/ML VIAL SQ SCH (07:49)
[2016-03-19] MEDS: Levofloxacin 750 MG/150 ML 750 MG/150 ML BAG IVPB SCH (07:50)
[2016-03-19] MEDS: cloNIDine HCl 0.1 MG TABLET PO SCH ×2 (12:09→22:01)
[2016-03-19] MEDS: *HR* Promethazine 25 MG/ML VIAL IVP PRN (12:09)
[2016-03-19] MEDS: Ketorolac 15 MG/ML VIAL IVP PRN ×2 (12:09→23:53)
[2016-03-19] MEDS ORDERED: Potassium Chloride 20 MEQ, Lidocaine 1% 2 ML in D5% in Water 250 ML IVPB ONE (15:00)
--- NOTE | 2016-03-19 15:54 | Internal Med Progress Note ---
Date of Encounter: 03/19/16 Time of Encounter: 11:50 - Assessment and plan (1) Opiate withdrawal Current Visit: Yes Status: Acute Assessment and plan: Due to history of substance abuse with cocaine and IV heroine, last use on the day prior to admission. Continue supportive care with when necessary antiemetics, IV Ativan, pain control with Tylenol and IV Toradol, clonidine. High risk patient. Patient is interested in rehabilitation services, social work associate on board to help with the same. (2) Multifocal pneumonia Current Visit: Yes Status: Acute Assessment and plan: Hold IV hydration. Continue broad-spectrum IV antibiotics-vancomycin, Zosyn. Blood cultures so far negative. Urine strep knee Alicia and Legionella antigen negative. Slightly improving leukocytosis, no fever spikes. Pneumococcal vaccination prior to discharge. Supportive care. Supplemental oxygen as needed. (3) Sepsis Current Visit: Yes Status: Acute Assessment and plan: Due to pneumonia. Plan as above. Qualifiers: Sepsis type: sepsis due to unspecified organism Qualified Code(s): A41.9 - Sepsis, unspecified organism (4) Nicotine abuse Current Visit: Yes Status: Chronic Assessment and plan: Patient is on not amenable to smoking cessation counseling at this time due to opiate withdrawal. Continue nicotine transdermal patch. (5) Acute respiratory failure with hypoxia Current Visit: Yes Status: Acute (6) IVDU (intravenous drug user) Current Visit: Yes Status: Chronic - Subjective Interval history: Reports nausea, runny nose and anxiety due to opiate withdrawal. Also reports pleuritic chest pain on coughing. Appears slightly ill because of these. No fever, chills, shortness of breath and improving cough. Able to tolerate oral diet. No diarrhea. - Constitutional Vitals: Temp Pulse Resp BP Pulse Ox 98.7 F 105 18 133/76 90 L 03/19/16 10:59 03/19/16 10:59 03/19/16 10:59 03/19/16 10:59 03/19/16 10:59 General appearance: Present: cachectic, mild distress, A&O X 3, answers questions appropriately - Head Head exam: Present: atraumatic, normocephalic - Neck Neck exam general surgery: Present: supple, trachea midline. Absent: lymphadenopathy - Respiratory Respiratory exam: Present: CTAB, tachypnea. Absent: accessory muscle use, rales , rhonchi, wheezes - Cardiovascular Cardiovascular exam: Present: RRR, +S1, +S2, tachycardia. Absent: diastolic murmur, gallop, rubs, systolic murmur - GI/Abdominal GI/Abdominal exam: Present: normal bowel sounds, soft (Mild diffuse abdominal tenderness), no peritoneal signs. Absent: distended, tenderness - Extremities Exam Extremities exam: Present: full ROM, warm, radial pulses palpable and symetrical. Absent: calf tenderness, cyanotic, pedal edema - Neurological Exam Neurological exam: Present: CN II-XII intact, oriented X3, no focal deficits. Absent: pronater drift, facial droop, speech deficit - Skin Skin exam: Present: dry, intact Internal Medicine: Result - Labs CBC & Chem 7: 03/19/16 05:36 03/19/16 05:36 Labs: Short CBC 03/19/16 Range/Units 05:36 WBC 18.2 H (4.3-11.1) K/mcL Hgb 11.8 L (12.9-16.9) g/dL Hct 35.5 L (37.5-50.1) % Plt Count 214 (140-400) K/mcL BMP 03/19/16 05:36 Sodium 141 D Potassium 3.4 L Chloride 114 H D Carbon Dioxide 18 L BUN 11 Creatinine 0.63 L Glucose 217 H Calcium 8.2 L Cardiac Enzymes 03/18/16 Range/Units 18:41 Troponin I 0.01 (0-0.03) ng/mL - ABG Interpretation ABG results: PT/INR, D-dimer PT 19.5 Seconds (9.4-12.1) H 03/18/16 06:02 D-Dimer 2573 ng/mLFEU (0-500) H 03/18/16 06:02 - VTE Documentation of Mechanical Device: Intermittent pneumatic compression device Consult Discharge Plan - Plan Referrals: NO,PCP [Primary Care Provider] -
[2016-03-19] MEDS ORDERED: cloNIDine HCl 0.1 MG TABLET PO ONE (17:51)
[2016-03-20] MEDS: *HR* Promethazine 25 MG/ML VIAL IVP PRN (00:02)
[2016-03-20] MEDS: *HR* Heparin 5,000 UNIT/ML VIAL SQ SCH ×3 (00:02→19:56)
[2016-03-20] MEDS: Ipratropium/Albuterol Neb 3 ML IH SCH ×2 (04:59→10:17)
[2016-03-20 05:51] LABS: Basophils % 0.2 %; Eosinophils % 0.1 %; Hematocrit 33.1 % (37.5-50.1); Hemoglobin 11.3 g/dL (12.9-16.9); Lymphocytes # 2.1 K/mcL (0.6-4.6); Lymphocytes % 18.6 %; Mean Corpuscular HGB Conc 34.1 g/dL (31.6-35.5); Mean Corpuscular Volume 82.1 fL (83.0-100.0); Mean Platelet Volume 8.9 fL (9.4-12.4); Monocytes # 0.6 K/mcL (0.0-1.3); Monocytes % 5.4 %; Neutrophils # 8.4 K/mcL (1.6-8.9); Platelet Count 402 K/mcL (140-400); Red Blood Count 4.03 M/mcL (4.19-5.50); Red Cell Distribution Width 13.3 % (11.5-14.5); Segmented Neutrophils % 73.7 %
[2016-03-20 06:11] LABS: BUN/Creatinine Ratio 20 (6-26); Blood Urea Nitrogen 12 mg/dL (8-26); Calcium 8.1 mg/dL (8.6-10.8); Carbon Dioxide 23 mEq/L (19-29); Chloride 113 mEq/L (98-109); Glucose 110 mg/dL (70-99); Magnesium 1.3 mg/dL (1.6-2.6); Osmolality,Calculated 302 (280-300); Sodium 146 mEq/L (136-145); eGFR For African Americans > 60 (> 60); eGFR For Non-African Americans > 60 (> 60)
[2016-03-20] MEDS: Folic Acid 1 MG TABLET PO SCH (08:08)
[2016-03-20] MEDS: cloNIDine HCl 0.1 MG TABLET PO SCH ×2 (08:08→19:44)
[2016-03-20] MEDS: Vitamin B Complex/Vit C/Vit E 1 EACH TABLET PO SCH (08:08)
[2016-03-20] MEDS: Levofloxacin 750 MG/150 ML 750 MG/150 ML BAG IVPB SCH (08:09)
[2016-03-20] MEDS: Thiamine (B-1) 100 MG TABLET PO SCH (08:09)
[2016-03-20] MEDS: Nicotine 21 MG PATCH.TD24 TD SCH (08:09)
[2016-03-20] MEDS: *HR* LORazepam 2 MG/ML VIAL IVP PRN ×4 (08:10→19:56)
[2016-03-20 09:56] LABS: Adenovirus Not Detected (Not Detect); Bordetella Pertussis Not Detected (Not Detect); Chlamydophila pneumoniae Not Detected (Not Detect); Coronavirus 229E Not Detected (Not Detect); Coronavirus HKU1 Not Detected (Not Detect); Coronavirus NL63 Not Detected (Not Detect); Coronavirus OC43 Not Detected (Not Detect); Human Metapneumovirus Not Detected (Not Detect); Human Rhinovirus/Enterovirus ***DETECTED*** (Not Detect); Influenza A Subtype 2009 H1 Not Detected (Not Detect); Influenza A Untypeable Not Detected (Not Detect); Influenza B Not Detected (Not Detect); Mycoplasma pneumoniae Not Detected (Not Detect); Parainfluenza Virus 1 Not Detected (Not Detect); Parainfluenza Virus 2 Not Detected (Not Detect); Parainfluenza Virus 3 Not Detected (Not Detect); Parainfluenza Virus 4 Not Detected (Not Detect); Respiratory Syncytial Virus Not Detected (Not Detect)
[2016-03-20] MEDS ORDERED: Magnesium Sulfate 2 GM in D5% in Water 100 ML IVPB ONE (11:59)
[2016-03-20] MEDS: Benzonatate 100 MG CAPSULE PO PRN (12:38)
[2016-03-20] MEDS ORDERED: Temazepam 15 MG CAPSULE PO PRN (15:54)
--- NOTE | 2016-03-20 16:33 | Internal Med Progress Note ---
Date of Encounter: 03/20/16 Time of Encounter: 11:25 - Assessment and plan (1) Opiate withdrawal Current Visit: Yes Status: Acute Assessment and plan: Due to history of substance abuse with cocaine and IV heroine, last use on the day prior to admission. Improving slowly. Continue supportive care with when necessary antiemetics, IV Ativan has been increased to every 3 hrly, pain control with Tylenol and IV Toradol, clonidine. High risk patient. Patient is interested in rehabilitation services, certified social workers in health care on board to help with the same. (2) Multifocal pneumonia Current Visit: Yes Status: Acute Assessment and plan: Improving clinically. Improved leukocytosis. Blood cultures remain negative. Urine strep pneumococci and Legionella antigen negative. De-escalate antibiotics and continue IV Zosyn. Pneumococcal vaccination prior to discharge. Supportive care. Supplemental oxygen as needed. (3) Sepsis Current Visit: Yes Status: Acute Assessment and plan: Due to pneumonia. Plan as above. Qualifiers: Sepsis type: sepsis due to unspecified organism Qualified Code(s): A41.9 - Sepsis, unspecified organism (4) Nicotine abuse Current Visit: Yes Status: Chronic Assessment and plan: Patient is on not amenable to smoking cessation counseling at this time due to opiate withdrawal. Continue nicotine transdermal patch. (5) Acute respiratory failure with hypoxia Current Visit: Yes Status: Acute (6) IVDU (intravenous drug user) Current Visit: Yes Status: Chronic (7) Hypokalemia Current Visit: Yes Status: Acute Assessment and plan: Unable to tolerate oral potassium chloride. Continue to supplement with IV potassium chloride. (8) Hypomagnesemia Current Visit: Yes Status: Acute Assessment and plan: Likely due to poor oral intake. Supplement with IV magnesium sulfate. - Subjective Interval history: Reports feeling much better than yesterday. Improved chest pain, shortness of breath and nausea. Continues to have some cough. No vomiting, fever or chills. - Constitutional Vitals: Temp Pulse Resp BP Pulse Ox 97.7 F 103 18 122/75 96 03/20/16 15:37 03/20/16 15:37 03/20/16 15:37 03/20/16 15:37 03/20/16 15:37 General appearance: Present: cachectic, A&O X 3, answers questions appropriately - Respiratory Respiratory exam: Present: wheezes (Mild end expiratory wheezing at bilateral bases). Absent: accessory muscle use, rales, rhonchi - Cardiovascular Cardiovascular exam: Present: RRR, +S1, +S2, tachycardia. Absent: diastolic murmur, gallop, rubs, systolic murmur - GI/Abdominal GI/Abdominal exam: Present: normal bowel sounds, soft, no peritoneal signs. Absent: distended, tenderness - Extremities Exam Extremities exam: Present: full ROM, warm, radial pulses palpable and symetrical. Absent: calf tenderness, cyanotic, pedal edema Internal Medicine: Result - Labs CBC & Chem 7: 03/20/16 05:36 03/20/16 05:36 Labs: Short CBC 03/20/16 Range/Units 05:36 WBC 11.4 H (4.3-11.1) K/mcL Hgb 11.3 L (12.9-16.9) g/dL Hct 33.1 L (37.5-50.1) % Plt Count 402 H D (140-400) K/mcL Neutrophils # 8.4 (1.6-8.9) K/mcL BMP 03/20/16 05:36 Sodium 146 H Potassium 3.0 L Chloride 113 H Carbon Dioxide 23 BUN 12 Creatinine 0.60 L Glucose 110 H Calcium 8.1 L - ABG Interpretation ABG results: PT/INR, D-dimer PT 19.5 Seconds (9.4-12.1) H 03/18/16 06:02 D-Dimer 2573 ng/mLFEU (0-500) H 03/18/16 06:02 - VTE Documentation of Mechanical Device: Intermittent pneumatic compression device Consult Discharge Plan - Plan Referrals: NO,PCP [Primary Care Provider] -
[2016-03-20 22:13] LABS: Amphetamines NEGATIVE ng/mL (Cutoff 30); Barbiturates NEGATIVE ng/mL (Cutoff 75); Benzodiazepines NEGATIVE ng/mL (Cutoff 75); Methadone NEGATIVE ng/mL (Cutoff 40); Methamphetamines NEGATIVE ng/mL (Cutoff 30); Phencyclidine NEGATIVE ng/mL (Cutoff 15)
[2016-03-21] MEDS: *HR* LORazepam 2 MG/ML VIAL IVP PRN ×2 (02:34→08:16)
[2016-03-21] MEDS: Benzonatate 100 MG CAPSULE PO PRN (02:34)
[2016-03-21 04:36] LABS: BUN/Creatinine Ratio 13 (6-26); Blood Urea Nitrogen 8 mg/dL (8-26); Calcium 8.3 mg/dL (8.6-10.8); Carbon Dioxide 27 mEq/L (19-29); Chloride 109 mEq/L (98-109); Glucose 143 mg/dL (70-99); Magnesium 1.7 mg/dL (1.6-2.6); Osmolality,Calculated 299 (280-300); Potassium 3.6 mEq/L (3.5-4.5); Sodium 144 mEq/L (136-145); eGFR For African Americans > 60 (> 60); eGFR For Non-African Americans > 60 (> 60)
[2016-03-21] MEDS: *HR* Heparin 5,000 UNIT/ML VIAL SQ SCH (06:15)
[2016-03-21] MEDS: Folic Acid 1 MG TABLET PO SCH (08:16)
[2016-03-21] MEDS: Vitamin B Complex/Vit C/Vit E 1 EACH TABLET PO SCH (08:16)
[2016-03-21] MEDS: Nicotine 21 MG PATCH.TD24 TD SCH (08:16)
[2016-03-21] MEDS: cloNIDine HCl 0.1 MG TABLET PO SCH (08:16)
[2016-03-21] MEDS: Thiamine (B-1) 100 MG TABLET PO SCH (08:16)
[2016-03-21] MEDS: Levofloxacin 750 MG/150 ML 750 MG/150 ML BAG IVPB SCH (08:17)
[2016-03-21 08:38] LABS: Cocaine POSITIVE ng/mL (Cutoff 30); Opiates POSITIVE ng/mL (Cutoff 30)
--- NOTE | 2016-03-21 10:33 | Discharge Summary ---
Date of Encounter: 03/21/16 Time of Encounter: 10:31 - Discharge Diagnosis (1) Opiate withdrawal Priority: Primary Status: Acute (2) Multifocal pneumonia Priority: Primary Status: Acute (3) Sepsis Priority: Primary Status: Resolved Qualifiers: Sepsis type: sepsis due to unspecified organism Qualified Code(s): A41.9 - Sepsis, unspecified organism (4) Nicotine abuse Priority: Secondary Status: Chronic (5) Acute respiratory failure with hypoxia Priority: Primary Status: Acute (6) IVDU (intravenous drug user) Priority: Secondary Status: Chronic (7) Hypokalemia Priority: Primary Status: Acute (8) Hypomagnesemia Priority: Primary Status: Acute - Discharge Medications Prescriptions: Levofloxacin [Levaquin] 500 mg PO DAILY 10 Days Home Medications: Ibuprofen [Motrin] 200 mg PO Q6HR PRN 03/18/16 [History] Albuterol Sulfate [Albuterol Inhaler] 2 puff IH Q4HR PRN 30 Days 03/21/16 [Rx] Levofloxacin [Levaquin] 500 mg PO DAILY 10 Days 03/21/16 [Rx] Allergies/Adverse Reactions: Allergies No Known Allergies Allergy (Verified 03/18/16 00:18) Date of admission: 03/18/16 15:29 Primary care physician: PCP NO Consults: 03/18/16 19:23 Consult to [employer] [CONS] Routine Reason for SW Consult: possible placement for tx. facility Discharging clinician: Vilma Orozco Anticipated date of discharge: 03/21/16 - Patient Status Disposition: Home, Self-Care Condition: Good Functional capacity at discharge: independent ambulation Overall status at discharge: patient is progressing back to baseline - Discharge Instructions Instructions: Pneumonia (DC) Follow Up With: NO,PCP [Primary Care Provider] - (Web request made to the residency clinic. They will call you with an appointment. It is important to keep this appointment.) Additional Instructions: F/up with PCP in 2 weeks- needs new physician F/up with opiate abuse rehab, information has been provided to him; - Diet and Activity Activity: resume usual activities as tolerated Diet: advance to your usual diet Hospital course: Mr. Fox is a 30 year old male with history of chronic tobacco abuse and IV drug abuse was admitted with worsening cough, fever, shortness of breath. He was noted to have fever, tachycardia, leukocytosis in the emergency room along with hypoxia. CT angiogram of chest was done which showed no evidence of pulmonary embolism but showed diffuse bilateral bronchiolitis and developing pneumonia. He was started on IV vancomycin and Zosyn given his history of IV drug abuse along with aggressive IV hydration and supplemental oxygen. He was also given IV steroids and bronchodilators due to history of smoking and the possibility of underlying COPD. He responded well to this regimen. His hospital course was complicated with opiate withdrawal as he continued to use IV heroine until the day of admission. He was given supportive care with when necessary IV Ativan, oral clonidine, when necessary antiemetics, antitussives and anti-pyretics. He remained stable on this regimen with improvement in tachycardia, anxiety and shortness of breath. He no longer required supplemental oxygen. central services tech was consulted and patient received information regarding substance abuse rehabilitation resources. Blood cultures remained negative. Respiratory viral serology was positive for enterovirus and rhinovirus. He is currently medically stable for discharge with oral steroids, antibiotics and albuterol inhaler. Time spent discussing smoking cessation with patient: 3 to 10 minutes - Time Spent with Patient Total time spent providing and/or coordinating discharge services: Greater than 30 minutes (45 min) - Constitutional Vitals: Temp Pulse Resp BP Pulse Ox 98.5 F 81 16 126/78 95 03/21/16 07:02 03/21/16 07:02 03/21/16 08:34 03/21/16 07:02 03/21/16 08:34 General appearance: Present: cachectic, A&O X 3 (anxious to leave), underweight , answers questions appropriately - Respiratory Respiratory exam: Present: wheezes (bibasal expiratory wheezing). Absent: accessory muscle use, rales, rhonchi - Cardiovascular Cardiovascular exam: Present: RRR, +S1, +S2, tachycardia. Absent: diastolic murmur, gallop, rubs, systolic murmur - VTE Documentation of Mechanical Device: Intermittent pneumatic compression device
[2016-03-21 10:34] VITALS: BP 128/88
[2016-03-21] MEDS ORDERED: Aminoglycoside Consult 1 EACH MC ONE (10:49)
[2016-03-23 10:26] LABS: Cocaine Confirmation 961 ng/mL
[2016-03-24 02:17] LABS: Hydrocodone Confirmation <2 ng/mL
[2016-03-24 11:02] LABS: 6_Acetylmorphine Confirmation <2 ng/mL; Oxymorphone Confirmation <2 ng/mL
== END 2016-03-21 10:50 | disposition home or self-care (01) | DRG 720 ==
LOC: EMEROO 00:16 → INTOOBSV 05:11 → 2ANU 05:11
PROVIDERS: ADMIT Internal Medicine; ATTEND Internal Medicine